=== PATIENT | male | born 1985 | race Caucasian/White ===

== ENCOUNTER 2017-05-09 13:03 | Emergency (ER) | payer SELFPAY ==
[~2017-05-09] VITALS: Ht 170.2 cm; Wt 65.9 kg
[2017-05-09 13:31] VITALS: BP 139/61; PULSE 94; RESP 18; TEMP 97.8; O2SAT 100
[2017-05-09] MEDS ORDERED: CEPHALEXIN MONOHYDRATE 500 MG CAP PO ONE (14:15)
[2017-05-09] MEDS ORDERED: SULFAMETHOXAZOLE-TRIMETHOPRIM DS 800-160 MG TAB PO ONE (14:15)
[2017-05-09] MEDS ORDERED: CEPH-460 PO (14:28)
[2017-05-09] MEDS ORDERED: BACT800T5 PO (14:28)
--- NOTE | 2017-05-09 14:29 | PD ---
HPI Chief Complaint: Skin Problem Time Seen by Provider: 13:52 Travel History International Travel<30 days: No Contact w/Intl Traveler<30days: No Traveled to known affect area: No History of Present Illness HPI This is a 31-year-old male here with possible abscess to the arm 2 days. Patient reports he was injecting methamphetamine 2 days ago and now has pain, redness, swelling of the right forearm. Pain is constant and worse with palpation of the area. Denies fever or chills. No chest pain or shortness of breath. Symptom severity is moderate. PFSH Past Medical History Medical History: Denies Significant Hx Diminished Hearing: No Tetanus Vaccination: Unknown Past Surgical History Tonsillectomy: Yes Social History Alcohol Use: No Tobacco Use: Yes Substance Use: Yes (Heroin, crystal meth IV drug ) Allergies-Medications (Allergen,Severity, Reaction): Coded Allergies: shellfish derived (Verified Allergy, Severe, Anaphylaxis, 05/09/17) Reported Meds & Prescriptions Reported Meds & Active Scripts Active No Active Prescriptions or Reported Medications Review of Systems Except as stated in HPI: all other systems reviewed are Neg General / Constitutional: No: Fever Eyes: No: Visual changes HENT: No: Headaches Cardiovascular: No: Chest Pain or Discomfort Respiratory: No: Shortness of Breath Gastrointestinal: No: Abdominal Pain Genitourinary: No: Dysuria Physical Exam Narrative GENERAL: Alert and well-appearing 31-year-old male SKIN: Warm and dry. Tender and indurated area to the right AC. No fluctuance or drainage. No lymphangitis HEAD: Normocephalic. EYES: No injection or drainage. NECK: Supple CARDIOVASCULAR: Regular rate and rhythm. No murmur appreciated RESPIRATORY: Breath sounds equal bilaterally. No accessory muscle use. GASTROINTESTINAL: Abdomen soft, non-tender, nondistended. MUSCULOSKELETAL: No cyanosis, or edema. Right upper extremity: See skin noted above. Patient is able to flex and extend the elbow without difficulty. 2+ distal pulses. Normal sensation. Brisk cap refill. Data Data Last Documented VS Vital Signs Date Time Temp Pulse Resp B/P (MAP) Pulse Ox O2 Delivery O2 Flow Rate FiO2 05/09/17 13:31 97.8 94 18 139/61 (87) 100 Orders Orders Sulfamet-Trimeth Ds 800-160 Mg (Bactrim (05/09/17 14:15) Cephalexin (Keflex) (05/09/17 14:15) Ibuprofen (Motrin) (05/09/17 14:30) MDM Medical Decision Making Medical Screen Exam Complete: Yes Emergency Medical Condition: Yes Differential Diagnosis Abscess, cellulitis, lymphangitis Narrative Course 31-year-old male here with an early abscess to the right AC. He reports the infection occurred after injecting IV methamphetamines 2 days ago. He denies any possibility of retained foreign body or broken needle. He denies fever or chills. He is nontoxic appearing. His vital signs are stable. The area is indurated without fluctuance incision and drainage is not warranted at this time. Patient will be started on Bactrim and Keflex. Instructed to apply warm compresses to the area return in 1-2 days for reevaluation and I&D at that time. Diagnosis Primary Impression: Abscess Referrals: Primary Care Physician Additional Instructions: Antibiotics as directed. Apply warm compresses to the area several times per day. Return in 1-2 days for recheck and possible incision and drainage at that time Scripts Cephalexin (Keflex) 500 Mg Capsule 500 MG PO Q6H for Infection for 10 Days, #40 CAP 0 Refills Prov: Zuly Chavez 05/09/17 Sulfamethoxazole-Trimethoprim (Bactrim DS) 800-160 Mg Tab 1 TAB PO BID for Infection, #20 TAB 0 Refills Prov: Zuly Chavez 05/09/17 Disposition: 01 DISCHARGE HOME Condition: Stable Zuly Chavez May 09, 2017 14:29
[2017-05-09] MEDS ORDERED: IBUPROFEN 800 MG TAB PO ONE (14:30)
== END 2017-05-09 14:53 | disposition home or self-care (01) ==
LOC: NEPK 13:03
DX: L02.413 Cutaneous abscess of right upper limb (principal)
CPT/HCPCS: 99283